=== PATIENT | female | born 1955 | race Caucasian/White ===

== ENCOUNTER → 2024-10-31 | Day surgery (SDC) | payer OTHER ==
[2024-10-28 14:15] LABS: Absolute Basophils 0.1 K/uL (0-0.5); Absolute Eosinophils 0.1 K/uL (0-0.5); Absolute Lymphocytes (CBC) 1.7 K/uL (0.7-4.9); Absolute Monocytes 0.3 K/uL (0.1-1.3); Absolute Neutrophil 3.7 K/uL (1.8-8.0); Basophils % 0.9 % (0-1.3); Eosinophils % 2.4 % (0-4.4); Hematocrit 39.5 % (36.0-45.0); Hemoglobin 13.7 g/dL (12.0-15.0); Lymphocytes % 28.5 % (15.3-44.8); MCH 32.4 pg (27.0-35.0); MCHC 34.7 g/dL (32.0-36.0); MCV 93.4 fL (80-100); Monocytes % 5.2 % (3.3-12.3); Platelets 219 thou/uL (152-406); RBC Red Blood Cell Count 4.22 M/uL (3.86-4.86); Red Cell Distribution Width 13.4 % (12.1-15.2)
[2024-10-28 14:24] LABS: Anion Gap 10.3 mEq/L (5.0-15.0); Potassium 4.3 mEq/L (3.5-5.1)
--- NOTE | 2024-10-29 12:30 | EKG ---
Test Date: 2024-10-28 Test Time: 13:40:56 [employer]: NANDINI MEASUREMENT RESULTS: Intervals: Rate: 75 NC: 154 QRSD: 118 QT: 474 QTc: 529 Colt: P: 62 NC: 154 QRS: 98 T: 34 INTERPRETIVE STATEMENTS: Normal sinus rhythm Right bundle branch block Abnormal ECG No previous ECG available for comparison Electronically Signed On 10-29-24 12:25:51 CDT by Ronaldo Bernal
[~2024-10-31] MED LIST: LIDOCAINE 1% MPF 5 ML VIAL ONE; propofoL 200 MG/20 ML VIAL IV ONE
[2024-10-31] MEDS: NA CHLORIDE 0.9% 1,000 ML ONE (08:13)
[2024-10-31 10:04] VITALS: O2SAT 100
[2024-10-31 10:07] VITALS: BP 125/55; TEMP 98.1
== END ==
LOC: OR 07:22
PROVIDERS: ATTEND Surgery
PROC: 0DB68ZX Excision of Stomach, Via Natural or Artificial Opening Endoscopic, Diagnostic (ICD-10-PCS; 2024-10-31)
PROC: 0DB48ZX Excision of Esophagogastric Junction, Via Natural or Artificial Opening Endoscopic, Diagnostic (ICD-10-PCS; 2024-10-31)
PROC: 0DBK8ZX Excision of Ascending Colon, Via Natural or Artificial Opening Endoscopic, Diagnostic (ICD-10-PCS; 2024-10-31)
PROC: 0DBK8ZX Excision of Ascending Colon, Via Natural or Artificial Opening Endoscopic, Diagnostic (ICD-10-PCS; principal; 2024-10-31 08:45)
PROC: 0DB98ZX Excision of Duodenum, Via Natural or Artificial Opening Endoscopic, Diagnostic (ICD-10-PCS; 2024-10-31 08:45)
DX: Z12.11 Encounter for screening for malignant neoplasm of colon (principal); K21.9 Gastro-esophageal reflux disease without esophagitis; K64.8 Other hemorrhoids; K64.4 Residual hemorrhoidal skin tags; K57.30 Diverticulosis of large intestine without perforation or abscess without bleeding; K63.9 Disease of intestine, unspecified; K29.50 Unspecified chronic gastritis without bleeding; K31.7 Polyp of stomach and duodenum; R13.19 Other dysphagia; D12.2 Benign neoplasm of ascending colon
CPT/HCPCS: 43239; 93005; 85025; 80048; 36415; 88312 ×2; 82947; 88305; 45380; J2704; J2003; J7030